=== PATIENT | female | born 1975 | race Two or more races ===

== ENCOUNTER 2023-07-06 16:24 | Emergency (ER) | payer OTHER ==
[2023-07-06 16:32] VITALS: BP 133/88; PULSE 66; RESP 20; TEMP 98.2; BMI 25.8
== END 2023-07-06 18:02 | disposition home or self-care (01) ==
LOC: JERFT 16:24
DX: R07.89 Other chest pain (principal); M54.6 Pain in thoracic spine; W22.8XXA Striking against or struck by other objects, initial encounter
CPT/HCPCS: 71046-TC-FY; 71101-TC-LT-FY; 99283-25

== ENCOUNTER 2023-07-17 12:08 | Emergency (ER) | payer OTHER ==
[2023-07-17 12:15] VITALS: BP 114/73; PULSE 72; RESP 18; TEMP 97.6; BMI 25.8
[2023-07-17] MEDS ORDERED: KETOROLAC TROMETHAMINE 30 MG/1 ML VIAL IM ONE (12:37)
[2023-07-17] MEDS ORDERED: KETOROLAC TROMETHAMINE 30 MG/1 ML VIAL ONE (13:08)
[2023-07-17 13:37] LABS: BASO % 0.7 % (0-2.0); EOS % 1.1 % (0-4.5); HEMATOCRIT 41.7 % (32.4-45.2); LYMPH % 49.1 % (8-40); MCH 26.4 pg (25.7-33.7); MCHC 31.3 g/dl (32.0-36.0); MEAN CELL VOLUME 84.3 fl (80-96); MEAN PLT VOLUME 6.8 fl (7.5-11.1); MONO % 8.5 % (3.8-10.2); NEUT % 40.6 % (42.8-82.8); PLATELET COUNT 393 10^3/uL (134-434); RBC 4.94 M/mm3 (3.60-5.2); RDW 13.8 % (11.6-15.6); WHITE BLOOD COUNT 3.2 K/mm3 (4.0-10.0)
[2023-07-17 13:59] LABS: POTASSIUM 4.2 mmol/L (3.5-5.1)
[2023-07-17 14:01] LABS: CALCIUM 9.3 mg/dL (8.5-10.1)
[2023-07-17 14:02] LABS: ALBUMIN 4.1 g/dl (3.4-5.0); BLOOD UREA NITROGEN 11.8 mg/dL (7-18)
[2023-07-17 14:06] LABS: BILIRUBIN,TOTAL 0.5 mg/dL (0.2-1)
[2023-07-17 14:19] LABS: CREATININE 0.9 mg/dL (0.55-1.3)
== END 2023-07-17 14:58 | disposition home or self-care (01) ==
LOC: JER 12:08
PROC: 3E0233Z Introduction of Anti-inflammatory into Muscle, Percutaneous Approach (ICD-10-PCS; principal; 2023-07-17)
DX: R07.89 Other chest pain (principal); R20.2 Paresthesia of skin
CPT/HCPCS: 36415; 71046-TC-FY; 80053; 84484; 85025; 93005; 93010; 99285-25